=== PATIENT | female | born 1965 | race African-American/Black ===

== ENCOUNTER 2019-01-24 08:14 | Emergency (ER) | payer OTHER ==
[~2019-01-24] VITALS: Ht 165.1 cm; Wt 89.8 kg
[2019-01-24] MEDS ORDERED: PRINIVIL20 MG PO (08:26)
[2019-01-24] MEDS ORDERED: METFORMIN HCL500 MG PO (08:26)
[2019-01-24] MEDS ORDERED: PREDNISONE 20 M20 M1 PO (11:05)
[2019-01-24 11:19] VITALS: BP 139/84
== END 2019-01-24 11:20 | disposition home or self-care (01) ==
LOC: M.ERS 08:14
DX: T78.3XXA Angioneurotic edema, initial encounter (principal); I10 Essential (primary) hypertension; E11.9 Type 2 diabetes mellitus without complications